=== PATIENT | female | born 1975 | race Caucasian/White ===

== ENCOUNTER 2019-12-15 18:09 | Emergency (ER) | payer BC ==
[~2019-12-15] VITALS: Ht 170.2 cm; Wt 119.7 kg
[2019-12-15] MEDS ORDERED: ADDERALL XR 3030 M1 (18:34)
== END 2019-12-16 00:25 | disposition home or self-care (01) ==
LOC: ER 18:09
DX: K52.89 Other specified noninfective gastroenteritis and colitis (principal)